=== PATIENT | male | born 1950 | race Caucasian/White ===

== ENCOUNTER 2019-08-30 20:42 | Emergency (ER) | payer MEDICARE, OTHER ==
[2019-08-30 21:27] LABS: BLOOD UREA NITROGEN,BUN 25 mg/dL (7.0-18.0); CARBON DIOXIDE,CO2 20.2 mmol/L (21.0-32.0); CHLORIDE,CL 105 mmol/L (98-107); GLUCOSE RANDOM 240 mg/dL (74-106); LIPASE 160 U/L (73-393); POTASSIUM,K 4.2 mmol/L (3.5-5.1); SODIUM,NA 139 mmol/L (136-148)
--- NOTE | 2019-08-30 21:29 | EDM.PDOC ---
ED HPI GENERAL MEDICAL PROBLEM - General Chief Complaint: Chest Pain Stated Complaint: CHEST PAIN Time Seen by Provider: 08/30/19 20:48 Source of Information: Reports: Patient, Family History Limitations: Reports: No Limitations - History of Present Illness INITIAL COMMENTS - FREE TEXT/NARRATIVE: Pt with a pmh of CAD s/p 5 stents last stent in may in [place] presents with central pressure like chest pain starting at 6 pm. Pt took 325 ASA and 3 Nitro at home with no relief, EMS called and gave 3 more sl nitro with relief of pain. Pt also has a pmh of metastatic prostate cancer. Sternal Pain Score (Numeric/FACES): 3 - Related Data Allergies Allergy/AdvReac Type Severity Reaction Status Date / Time No Known Allergies Allergy Verified 08/30/19 20:54 Home Meds: Home Meds Albuterol Sulfate [Proair Hfa] 8.5 gm IH ASDIRECTED 08/30/19 [History] Clopidogrel [Plavix] 75 mg PO DAILY 08/30/19 [History] Denosumab [Xgeva] 120 mg .XX DAILY 08/30/19 [History] Diclofenac Sodium [Voltaren 1% Gel] 1 applic TOP QID PRN 08/30/19 [History] Insulin Aspart [NovoLOG] 0 unit WITHMEALSANDBED 08/30/19 [History] Insulin Glarg,Human.Rec.Analog [Lantus] 0 unit SUBCUT DAILY 08/30/19 [History] Isosorbide Dinitrate 30 mg PO DAILY 08/30/19 [History] Leuprolide [Lupron Depot] 22.5 mg IM DAILY 08/30/19 [History] Levothyroxine Sodium [Unithroid] 200 mcg PO DAILY 08/30/19 [History] Metoprolol Succinate [Toprol XL] 1.5 tab PO DAILY 08/30/19 [History] Nitroglycerin [Nitrostat] 0.4 mg SL ASDIRECTED PRN 08/30/19 [History] Ranolazine [Ranexa] 500 mg PO BID 08/30/19 [History] Sodium Bicarbonate 650 mg PO BID 08/30/19 [History] Tamsulosin [Tamsulosin 24 Hr] 0.8 mg PO DAILY 08/30/19 [History] amLODIPine [Norvasc] 10 mg PO DAILY 08/30/19 [History] atorvaSTATin Calcium [Atorvastatin Calcium] 80 mg PO DAILY 08/30/19 [History] oxyCODONE HCl/Acetaminophen [Percocet 5-325 mg Tablet] 1 tab PO Q6H PRN [History] ED ROS GENERAL - Review of Systems Review Of Systems: See Below Constitutional: Reports: No Symptoms Respiratory: Reports: No Symptoms. Denies: Shortness of Breath, Pleuritic Chest Pain Cardiovascular: Reports: Chest Pain GI/Abdominal: Reports: No Symptoms Musculoskeletal: Reports: No Symptoms Neurological: Reports: No Symptoms ED EXAM, GENERAL - Physical Exam Exam: See Below General Appearance: Alert, No Apparent Distress Head: Atraumatic, Normocephalic Neck: Normal Inspection Respiratory/Chest: No Respiratory Distress, Lungs Clear, Normal Breath Sounds Cardiovascular: Regular Rate, Rhythm, No JVD, No Murmur GI/Abdominal: Soft, Non-Tender, No Distention Extremities: Normal Inspection Neurological: Alert, Oriented, Normal Cognition Skin Exam: Warm, Dry, Intact EKG INTERPRETATION Rhythm: NSR [place]: Normal P-Wave: Present QRS: Normal ST-T: Normal QT: Normal EKG Interpretation Comments: No STEMI, No evidence of acute ischemia Course - Vital Signs Last Recorded V/S: Last Vital Signs Temp 97.8 F 08/30/19 23:00 Pulse 59 L 08/30/19 23:45 Resp 20 08/30/19 23:45 BP 151/59 H 08/30/19 23:45 Pulse Ox 98 08/30/19 23:45 - Orders/Labs/Meds Orders: Active Orders 24 hr Category Date Time Status EKG Documentation Completion [RC] STAT Care 08/30/19 20:48 Active Labs: Laboratory Tests 08/30/19 08/30/19 08/30/19 Range/Units 20:58 20:58 20:58 WBC 6.01 (4.0-11.0) K/uL RBC 4.09 L (4.50-5.90) M/uL Hgb 11.2 L (13.0-17.0) g/dL Hct 34.6 L (38.0-50.0) % MCV 84.6 (80.0-98.0) fL MCH 27.4 (27.0-32.0) pg MCHC 32.4 (31.0-37.0) g/dL RDW Std Deviation 51.9 (28.0-62.0) fl RDW Coeff of Andrei 17 H (11.0-15.0) % Plt Count 176 (150-400) K/uL MPV 11.40 (7.40-12.00) fL Neut % (Auto) 70.1 (48.0-80.0) % Lymph % (Auto) 18.0 (16.0-40.0) % Miller % (Auto) 7.3 (0.0-15.0) % Eos % (Auto) 4.3 (0.0-7.0) % Baso % (Auto) 0.3 (0.0-1.5) % Neut # (Auto) 4.2 (1.4-5.7) K/uL Lymph # (Auto) 1.1 (0.6-2.4) K/uL Miller # (Auto) 0.4 (0.0-0.8) K/uL Eos # (Auto) 0.3 (0.0-0.7) K/uL Baso # (Auto) 0.0 (0.0-0.1) K/uL Nucleated RBC % 0.0 /100WBC Nucleated RBCs # 0 K/uL INR 1.10 Sodium 139 (136-148) mmol/L Potassium 4.2 (3.5-5.1) mmol/L Chloride 105 (98-107) mmol/L Carbon Dioxide 20.2 L (21.0-32.0) mmol/L BUN 25 H (7.0-18.0) mg/dL Creatinine 1.8 H (0.8-1.3) mg/dL Est Cr Clr Drug Dosing TNP Estimated GFR (MDRD) 37.8 ml/min Glucose 240 H (74-106) mg/dL Calcium 8.6 (8.5-10.1) mg/dL Total Bilirubin 0.9 (0.2-1.0) mg/dL AST 64 H (15-37) IU/L ALT 56 (14-63) IU/L Alkaline Phosphatase 163 H (46-116) U/L Troponin I < 0.050 (0.000-0.056) ng/mL Total Protein 8.2 (6.4-8.2) g/dL Albumin 3.5 (3.4-5.0) g/dL Globulin 4.7 H (2.6-4.0) g/dL Albumin/Globulin Ratio 0.7 L (0.9-1.6) Lipase 160 (73-393) U/L - Re-Assessments/Exams Free Text/Narrative Re-Assessment/Exam: 08/31/19 00:08 VS stable and PE benign. Initial ECG and enzymes negative. With the pt's extensive cardiac history, I feel that he will likely need to be evaluated by Interventional Cardiology which we do not have. Dr. Holden at [facility] contacted and Pt accepted for transfer. Pt transferred in stable condition. Pt and family in agreement with plan. Departure - Departure Time of Disposition: 00:11 Disposition: DC/Tfer to Acute Hospital 02 Reason for Transfer *Q: Other (Likely need for Interventional Cardiology) Condition: Good Clinical Impression: Acute coronary syndrome, Chest pain Referrals: PCP,None [Primary Care Provider] - Forms: ED Department Discharge Sepsis Event Note - Focused Exam Vital Signs: Vital Signs Temp Pulse Resp BP Pulse Ox 08/30/19 23:45 59 L 20 151/59 H 98 08/30/19 23:00 97.8 F 60 20 124/44 L 98 08/30/19 22:00 77 20 134/67 94 L 08/30/19 21:30 59 L 20 93 L 08/30/19 21:15 61 20 95 08/30/19 20:50 97.1 F 72 18 117/65 95 Date Exam was Performed: 08/31/19 Time Exam was Performed: 00:08 - My Orders Last 24 Hours: My Active Orders 08/30/19 20:48 EKG Documentation Completion [RC] STAT - Assessment/Plan Last 24 Hours: My Active Orders 08/30/19 20:48 EKG Documentation Completion [RC] STAT
--- NOTE | 2019-08-30 21:40 | CR ---
Chest: Portable view of the chest was obtained. Comparison: No prior chest x-rays is available. Infusion port is seen on the left side with tip lying within the superior vena cava in satisfactory position. Lungs are clear with no acute parenchymal change. Heart size and mediastinum are normal. Bony structures are grossly intact. Impression: 1. Findings as described above. 2. Nothing acute is seen on portable chest x-ray. Diagnostic code #2 Study was dictated in [place] Standard Time
[2019-08-31] MEDS ORDERED: Acetaminophen/oxyCODONE 325-5 MG Tab PO ONE (00:27)
== END 2019-08-31 01:48 ==
LOC: MW.ED 20:42
DX: I24.9 Acute ischemic heart disease, unspecified (principal); Z79.02 Long term (current) use of antithrombotics/antiplatelets; Z79.899 Other long term (current) drug therapy
CPT/HCPCS: 36415; 71045; 80053; 83690; 84484; 85025; 85610; 93005; 99285; A9270

== ENCOUNTER 2021-10-15 08:55 | Emergency (ER) | payer MEDICARE, OTHER ==
[2021-10-15] MEDS ORDERED: Ondansetron 4 MG/2 ML SDV IVPUSH ONE (09:02)
[2021-10-15] MEDS ORDERED: Morphine 4 MG/ML VIAL IVPUSH ONE (09:02)
[2021-10-15 09:55] LABS: BLOOD UREA NITROGEN,BUN 18 mg/dL (7.0-18.0); CARBON DIOXIDE,CO2 22.2 mmol/L (21.0-32.0); CHLORIDE,CL 105 mmol/L (98-107); ESTIMATED GFR 43.1 ml/min; GLUCOSE RANDOM 164 mg/dL (74-106); LIPASE 44 U/L (73-393); POTASSIUM,K 4.3 mmol/L (3.5-5.1); SODIUM,NA 140 mmol/L (136-148)
[2021-10-15] MEDS ORDERED: Iopamidol 755 MG/ML 500 ML Multipack Bottle IVPUSH ONE (11:16)
== END 2021-10-15 11:20 | disposition home or self-care (01) ==
LOC: MW.ED 08:55
DX: S20.211A Contusion of right front wall of thorax, initial encounter (principal); S00.01XA Abrasion of scalp, initial encounter; J18.9 Pneumonia, unspecified organism; I10 Essential (primary) hypertension; E11.9 Type 2 diabetes mellitus without complications; W01.10XA Fall on same level from slipping, tripping and stumbling with subsequent striking against unspecified object, initial encounter
CPT/HCPCS: 36415; 70450; 71260; 72125; 74177; 80053; 83690; 83735; 84484; 85025; 85610; 85730; 93005; 96374; 96375; 99284; J2270; J2405; Q9967; 93010

== ENCOUNTER 2021-12-31 20:55 | Emergency (ER) | payer MEDICARE, OTHER ==
[2021-12-31 21:35] LABS: BLOOD UREA NITROGEN,BUN 31 mg/dL (7.0-18.0); CARBON DIOXIDE,CO2 23.2 mmol/L (21.0-32.0); CHLORIDE,CL 105 mmol/L (98-107); GLUCOSE RANDOM 213 mg/dL (74-106); POTASSIUM,K 4.4 mmol/L (3.5-5.1); SODIUM,NA 137 mmol/L (136-148)
[2021-12-31] MEDS ORDERED: Morphine 4 MG/ML VIAL IM ONE (21:43)
[2021-12-31] MEDS ORDERED: Ondansetron 4 MG/2 ML SDV IVPUSH ONE (21:43)
[2021-12-31] MEDS ORDERED: Morphine 4 MG/ML VIAL IVPUSH ONE (21:44)
[2022-01-01] MEDS ORDERED: Morphine 4 MG/ML VIAL IVPUSH ONE (01:14)
[2022-01-01] MEDS ORDERED: Heparin Sodium 10 Units/ML 5 ML Syringe FLUSH STA (02:14)
== END 2022-01-01 02:45 | disposition home or self-care (01) ==
LOC: MW.ED 20:55
DX: S20.211A Contusion of right front wall of thorax, initial encounter (principal); R55 Syncope and collapse; Z79.899 Other long term (current) drug therapy; Z79.4 Long term (current) use of insulin; W18.39XA Other fall on same level, initial encounter
CPT/HCPCS: 36415; 70450; 71045; 72170; 80053; 83735; 84484; 85025; 93005; 96374; 96375; 96376; 99284; J1642; J2270; J2405; 93010

== ENCOUNTER 2022-03-04 09:42 | Emergency (ER) | payer MEDICARE, OTHER ==
[2022-03-04] MEDS ORDERED: Morphine 4 MG/ML VIAL IVPUSH ONE (10:41)
[2022-03-04 11:02] LABS: CARBON DIOXIDE,CO2 21.6 mmol/L (21.0-32.0); POTASSIUM,K 5.5 mmol/L (3.5-5.1)
[2022-03-04] MEDS ORDERED: Iopamidol 755 MG/ML 500 ML Multipack Bottle IVPUSH STA (11:32)
== END 2022-03-04 14:42 | disposition home or self-care (01) ==
LOC: MW.ED 09:42
DX: S83.91XA Sprain of unspecified site of right knee, initial encounter (principal); S93.401A Sprain of unspecified ligament of right ankle, initial encounter; Z79.899 Other long term (current) drug therapy; Z79.4 Long term (current) use of insulin; W18.2XXA Fall in (into) shower or empty bathtub, initial encounter
CPT/HCPCS: 36415; 70450; 71045; 71275; 72170; 73562; 73610; 80053; 81001; 83735; 84484; 85025; 85610; 93005; 96374; 99284; J2270; Q9967; 93010